=== PATIENT | male | born 1960 | race Caucasian/White ===

== ENCOUNTER 2016-08-02 10:47 | Emergency (ER) | payer OTHER ==
[~2016-08-02] VITALS: Ht 167.6 cm; Wt 74.2 kg
[~2016-08-02 10:47] MED LIST: ASPIRIN81 M2 PO; ATORVASTATIN CA40 MG PO; LISINOPRIL5 MG PO; METHADONE10 MG PO; METHADONE5 MG PO; METOPROLOL SUCC25 MG PO; PLAVIX75 MG PO
[2016-08-02 11:52] LABS: HEMATOCRIT 39.8 % (38.0-50.0); MCH 28.3 PG (29.0-34.0); MCHC 32.2 G/DL (30.0-36.0); MCV 87.9 FL (86-99); MEAN PLAT.VOLUME 9.5 uM^3 (9.0-12.4); PLATELET COUNT 433 K/uL (156-360); RBC DIS.WIDTH-CV 12.8 % (11.8-14.6); RBC DIS.WIDTH-SD 41.2 % (39-53); RED BLOOD COUNT 4.53 M/uL (4.00-5.50); WHITE BLOOD COUNT 6.3 K/uL (4.1-10.2)
[2016-08-02 12:02] LABS: CHLORIDE 100 mEq/L (99-109); POTASSIUM 4.5 mEq/L (3.7-5.4); SODIUM 139 mEq/L (136-147)
[2016-08-02 12:04] LABS: GLUCOSE 107 mg/dL (70-99)
[2016-08-02 12:05] LABS: ANION GAP 12 MEQ/L (2-14)
[2016-08-02 12:07] LABS: GFR ESTIMATE (CALCULATED) > 59 mL/min/
[2016-08-02 12:08] LABS: UREA NITROGEN (BUN) 29 mg/dL (9-23)
[2016-08-02] MEDS ORDERED: METHADONE1 MG/1 ML PO (12:49)
[2016-08-02] MEDS ORDERED: AMOXICILLIN PO (12:51)
[2016-08-02 14:02] LABS: ADD MIUA? YES; BILIRUBIN NEGATIVE; BLOOD NEGATIVE; COLOR YELLOW ((YELLOW)); GLUCOSE (STRIP) NEGATIVE; KETONES 20; LEUKOCYTES TRACE; NITRITE NEGATIVE; PROTEIN (STRIP) 100; SPECIFIC GRAVITY 1.027 (1.000-1.030)
[2016-08-02 14:25] LABS: INFLUENZA A VIRAL ANTIGEN NEGATIVE; INFLUENZA B VIRAL ANTIGEN POSITIVE
[2016-08-02] MEDS ORDERED: ZOFRAN ODT4 MG PO (15:31)
[2016-08-02 15:34] LABS: AMORPHOUS URATES CRYSTALS 3+; BACTERIA RARE /HPF; CASTS PRESENT /LPF; CRYSTALS PRESENT; EPITHELIAL CELLS RARE /HPF; HYALINE CASTS 0-5 /LPF; MUCUS 1+ /LPF; RED BLOOD CELLS NONE SEEN /HPF (0-5); UCUL ADDED? NO; WHITE BLOOD CELLS RARE /HPF (0-5)
[2016-08-02 15:50] VITALS: BP 107/69
== END 2016-08-02 15:58 | disposition home or self-care (01) ==
LOC: EME 10:47
PROVIDERS: Physician Assistant
DX: J10.2 Influenza due to other identified influenza virus with gastrointestinal manifestations (principal); R11.2 Nausea with vomiting, unspecified; R05 Cough; Z87.442 Personal history of urinary calculi; I25.2 Old myocardial infarction; Z95.5 Presence of coronary angioplasty implant and graft; Z79.82 Long term (current) use of aspirin; Z79.02 Long term (current) use of antithrombotics/antiplatelets; Z79.891 Long term (current) use of opiate analgesic; Z87.891 Personal history of nicotine dependence
CPT/HCPCS: 71020; 80048; 81003; 85027; 87502; 99281; 99284